=== PATIENT | female | born 1975 | race African-American/Black ===

== ENCOUNTER 2025-07-20 04:01 | Emergency (ER) | payer SELFPAY ==
[2025-07-20 05:44] LABS: #Basophils 0.05 10x3/uL (0.0-0.2); #Eosinophils 0.03 10x3/uL (0.0-0.7); #Monocytes 1.00 10x3/uL (0.11-0.59); #Neutrophils 10.24 10x3/uL (1.40-6.50); %Basophils 0.4 % (0.0-1.0); %Eosinophils 0.2 % (0.0-10.0); %Lymphocytes 19.3 % (21.0-51.0); %Monocytes 7.1 % (0.0-10.0); %Neutrophils 72.2 % (42.0-75.0); Hematocrit 37.2 % (36.0-47.0); Hemoglobin 11.7 g/dL (12.0-16.0); Mean Corpuscular Hemoglobin 28.1 pg (27.0-31.0); Mean Corpuscular Volume 89.2 fL (78.0-98.0); Platelet Count 484 10x3/uL (130-400); Red Blood Cell (RBC) Count 4.17 mill/uL (4.20-5.40); White Blood Cell (WBC) Count 14.16 10x3/uL (4.8-10.8)
[2025-07-20 06:03] LABS: BHCG - Serum Negative (NEGATIVE); Pregs Control Bar Appear? YES (CONTROL BAR)
[2025-07-20 06:04] LABS: Pregs Control Background? CLEAR/WHITE (CLR/WHITE)
[2025-07-20 06:28] LABS: Albumin 4.3 g/dL (3.1-4.5); Chloride 102 mmol/L (98-107); Potassium 3.9 mmol/L (3.5-5.1); Sodium 138 mmol/L (136-145)
[2025-07-20 06:29] LABS: Calcium 9.4 mg/dL (7.8-10.44); Glucose 148 mg/dL (70-105)
[2025-07-20 06:30] LABS: Globulin 3.9 g/dL (2.4-3.5)
[2025-07-20 06:31] LABS: Anion Gap 17 mmol/L (10-20); Carbon Dioxide 23 mmol/L (22-29)
[2025-07-20 06:32] LABS: Alkaline Phosphatase 117 U/L (40-110); Bilirubin, Total 0.3 mg/dL (0.3-1.2)
[2025-07-20 06:33] LABS: BUN (Urea Nitrogen) 10 mg/dL (7.0-18.7); Calc. Creatinine Clearance 0 mL/min (70-130)
[2025-07-20 06:35] LABS: ALT (SGPT) 19 U/L (Less than 34); AST (SGOT) 48 U/L (11-34)
== END 2025-07-20 06:57 ==
LOC: ERS 04:01
DX: R07.9 Chest pain, unspecified (principal); F17.210 Nicotine dependence, cigarettes, uncomplicated; V47.5XXA Car driver injured in collision with fixed or stationary object in traffic accident, initial encounter
CPT/HCPCS: 36415; 71046; 80053; 84484; 84703; 85025; 93005